=== PATIENT | female | born 1955 | race Caucasian/White ===

== ENCOUNTER 2016-09-14 14:51 | Observation (INO) ==
[2016-09-14] MEDS ORDERED: NS 1,000 ML ONE (15:09)
[2016-09-14 15:27] LABS: MANUAL DIFF NEEDED? NO
[2016-09-14 15:34] LABS: BASO% 0.4 % (0.0-0.8); EOS# 0.11 X1000 (0.0-0.7); EOS% 1.4 % (0.0-10.0); HEMATOCRIT 43.6 % (37.0-47.0); HEMOGLOBIN 13.9 g/dL (12.0-16.0); IMM GRAN# 0.03 X1000 (0.0-0.04); IMM GRAN% 0.4 % (0.0-0.5); LYMPH# 2.56 X1000 (1.2-3.4); LYMPH% 32.5 % (20.5-51.1); MCH 28.5 PG (27-31); MCHC 31.9 g/dL (33-37); MCV 89.5 FL (81-99); MONO% 6.3 % (1.7-9.3); MPV 10.2 FL (7.4-10.4); PLT 281 X1000 (130-400); RBC 4.87 XMIL (4.2-5.4)
[2016-09-14 15:44] LABS: INR 1.01 (0.86-1.15); PROTIME 13.6 Seconds (12.1-15.5)
[2016-09-14 15:45] LABS: PTT PL 20.7 Seconds (22.6-43.9)
--- NOTE | 2016-09-14 15:49 | EKG Report ---
Test Performed on : 09/14/2016 3:19:15 PM Test Reason : near syncope Blood Pressure : / mmHG Vent. Rate : 052 BPM Atrial Rate : 052 BPM P-R Int : 176 ms QRS Dur : 092 ms QT Int : 466 ms P-R-T Axes : 076 036 050 degrees QTc Int : 433 ms Sinus bradycardia. Otherwise normal ECG No previous ECGs available Unconfirmed Result
[2016-09-14 15:54] LABS: AGAP 15; ALBUMIN 4.3 g/dL (3.5-5.0); ALKALINE PHOSPHATASE 90 U/L (32-104); BUN 15 mg/dL (8-22); CHLORIDE 102 mmol/L (98-107); CK PROFILE 163 U/L (24-173); COSMO 281; GOT 21 U/L (10-30); GPT 29 U/L (10-36); MAGNESIUM 2.1 mg/dL (1.5-2.7); POTASSIUM 3.7 mmol/L (3.5-5.1); SODIUM 139 mmol/L (136-145); TCO2 23 mmol/L (25-35); TOTAL PROTEIN 6.9 g/dL (6.3-8.3)
--- NOTE | 2016-09-14 15:56 | Diag Imaging Result Doc PS360 ---
EXAM: CHEST-2 VIEWS HISTORY: CP TECHNIQUE: PA and Lateral chest x-ray COMPARISON: None. FINDINGS: There is cardiomegaly. There is mild pulmonary vascular congestion versus mild interstitial prominence. No effusion or pneumothorax. There are bilateral breast implants. IMPRESSION: Cardiomegaly with vascular congestion versus interstitial fibrosis. Electronically signed by Joanne Summers 09/14/2016 3:54 PM
--- NOTE | 2016-09-14 16:43 | PROVIDER DOCUMENTATION ---
This chart was entered by Emma Ryees Scribe, acting as scribe for Brian Perry MD. HPI-Rash/Wound/ReCheck - General Chief Complaint: Allergic Reaction Stated Complaint: ALLERGIC REACTION Time Seen by Provider: 09/14/16 15:25 Source: patient Allergies/Adverse Reactions: Allergies Allergy/AdvReac Type Severity Reaction Status Date / Time codeine AdvReac ITCHING Verified 09/14/16 15:06 Home Medications: Home Medication List Medication Instructions Recorded Confirmed Last Taken Type Amoxicillin/Potassium Clav 875 mg PO 09/14/16 Unknown History [Amox-Clav 875-125 mg Tablet] Oxycodone HCl/Acetaminophen 7.5 mg PO 09/14/16 Unknown History [Percocet 7.5-325 mg Tablet] - History of Present Illness-Dermatology Nature of Presenting Problem: Pt is 61 y/o F presents to the ED with allergic reaction. Pt states she has a dental extraction this am. Pt states felt fine after procedure. Pt states took 1 7.5 mg percocet and 15 mins after started itching then developed red rash. Pt states N and V Location: reports: generalized Quality: reports: itchy Severity: reports: moderate Onset/Duration: reports: just prior to arrival Timing: reports: still present Context/Associated Symptoms: reports: rash Locality of Occurance: Home Similar Symptoms Previously?: No Recently seen or treated by another doctor?: No Review of Systems - Adult - REVIEW OF SYSTEMS - ADULT Constitutional: reports: no symptoms reported Eyes: reports: no symptoms reported Ears, Nose, Mouth & Throat: reports: no symptoms reported Cardiovascular: reports: no symptoms reported Respiratory: reports: no symptoms reported Gastrointestinal: reports: nausea, vomiting. denies: abdominal pain, diarrhea Genitourinary: reports: no symptoms reported Musculoskeletal: reports: no symptoms reported Integumentary: reports: rash. denies: hives, itching Neurological: reports: no symptoms reported Psychiatric: reports: no symptoms reported Endocrine: reports: no symptoms reported Hematologic/Lymphatic: reports: no symptoms reported Allergic/Immunologic: reports: no symptoms reported All Other Systems: Reviewed and Negative Past History - Adult - PAST MEDICAL HISTORY-ADULT Review of Records: reports: Nursing Assessment Review, Medications Reviewed, Social history reviewed & non-contributory. Major Childhood Illnesses: reports: denies history Cardiovascular: reports: denies history Respiratory: reports: denies history Gastrointestinal: reports: denies history Obstetrical/Gynecological: reports: denies history Genitourinary: reports: denies history Musculoskeletal: reports: denies history Neurological: reports: denies history Endocrine/Immune: reports: denies history Other Conditions: reports: denies history - PRIOR SURGERIES/PROCEDURES Surgical/Procedure History: reports: hysterectomy - IMMUNIZATION STATUS Childhood Immunizations: See Nurse Assessment Flu Vaccine: See Nurse Assessment - FAMILY HISTORY Family History: reviewed, not pertinent - SOCIAL HISTORY Smoking: quit greater than 1 year, cigarettes Substance Use: denies Living Situation: family Physical Exam-General - PHYSICAL EXAM-ADULT Initial Vital Signs Reviewed: Yes - CONSTITUTIONAL General Appearance: appears well, alert, no apparent distress - EYES Eyes: PERRL/EOMI, pink conjunctivae - HEAD, EARS, NOSE, MOUTH & THROAT HENMT: normocephalic/atraumatic, moist mucous membranes, normal ENT inspection - NECK Neck: non-tender, full range of motion, supple, normal inspection - RESPIRATORY Respiratory: chest non-tender, lungs clear, normal breath sounds - CARDIOVASCULAR Cardiovascular: normal peripheral pulses, bradycardia - GASTROINTESTINAL (ABDOMEN) Abdominal Exam: normal bowel sounds, non tender, soft - LYMPHATIC Lymphatic: no adenopathy - MUSCULOSKELETAL Back Exam: normal inspection, no CVA tenderness, no vertebral tenderness Extremity: normal range of motion, non-tender, normal gait, normal inspection - SKIN Integumentary: normal turgor, warm/dry, erythema (generalized) - NEUROLOGIC Neurologic: grossly normal - PSYCHIATRIC Psych/Mental Status: normal mood/affect, oriented x 3 Progress - PLAN OF CARE/RESULTS Progress/Plan/Lab Results: Vital Signs - 8 hr 09/14/16 15:09 09/14/16 15:12 09/14/16 15:17 Temperature 98 F Pulse Rate 48 L 51 L Respiratory Rate 20 18 Blood Pressure 78/40 114/058 O2 Sat by Pulse Oximetry 97 98 09/14/16 15:58 Temperature Pulse Rate 88 Respiratory Rate 18 Blood Pressure 121/059 O2 Sat by Pulse Oximetry 99 Laboratory Results - last 24 hr 09/14/16 09/14/16 09/14/16 15:22 15:22 15:22 WBC RBC Hgb Hct MCV MCH MCHC RDW Std Deviation Plt Count MPV Immature Gran % (Auto) Neut % (Auto) Lymph % (Auto) Traverse % (Auto) Eos % (Auto) Baso % (Auto) Immature Gran # (Auto) Neut # (Auto) Lymph # (Auto) Traverse # (Auto) Eos # (Auto) Baso # (Auto) PT INR APTT (Factor Assay) D-Dimer Sodium 139 Potassium 3.7 Chloride 102 Carbon Dioxide 23 L Anion Gap 15 BUN 15 Creatinine 0.7 Estimated GFR/1.73 m2 > 60 BUN/Creatinine Ratio 21 Glucose 140 H Calculated Osmolality 281 Calcium 9.0 Magnesium 2.1 Total Bilirubin 0.40 AST 21 ALT 29 Alkaline Phosphatase 90 Creatine Kinase 163 Troponin T < 0.010 [id number] Pept 77 Total Protein 6.9 Albumin 4.3 Globulin 3.0 Albumin/Globulin Ratio 2.0 09/14/16 09/14/16 15:22 15:22 WBC 7.88 RBC 4.87 Hgb 13.9 Hct 43.6 MCV 89.5 MCH 28.5 MCHC 31.9 L RDW Std Deviation 14.4 Plt Count 281 MPV 10.2 Immature Gran % (Auto) 0.4 Neut % (Auto) 59.0 Lymph % (Auto) 32.5 Traverse % (Auto) 6.3 Eos % (Auto) 1.4 Baso % (Auto) 0.4 Immature Gran # (Auto) 0.03 Neut # (Auto) 4.65 Lymph # (Auto) 2.56 Traverse # (Auto) 0.50 Eos # (Auto) 0.11 Baso # (Auto) 0.03 PT 13.6 INR 1.01 APTT (Factor Assay) 20.7 L D-Dimer 1.35 H Sodium Potassium Chloride Carbon Dioxide Anion Gap BUN Creatinine Estimated GFR/1.73 m2 BUN/Creatinine Ratio Glucose Calculated Osmolality Calcium Magnesium Total Bilirubin AST ALT Alkaline Phosphatase Creatine Kinase Troponin T Ixh-M-[id number] Pept Total Protein Albumin Globulin Albumin/Globulin Ratio Orders Category Date Time Status Cardiac Monitoring DIRECTED Care 09/14/16 15:11 Active Cardiac Monitoring DIRECTED Care 09/14/16 15:11 Active Oxygen Therapy- ED Nursing DIRECTED Care 09/14/16 15:11 Active Saline Loc NOW Care 09/14/16 15:11 Active Saline Loc NOW Care 09/14/16 15:11 Active CHEST-2 VIEWS [RAD] Stat Exams 09/14/16 15:11 Completed CBC WITH ELECTRONIC DIFF [HEME] Stat Lab 09/14/16 15:22 Completed CK PROFILE [SP CHEM] Stat Lab 09/14/16 15:22 Completed COMPREHENSIVE METABOLIC PANEL [CHEM] Stat Lab 09/14/16 15:[address] D-D[address]ER [address] [COAG] Stat Lab 09/14/16 15:22 Completed MAGNESIUM [CHEM] Stat Lab 09/14/16 15:22 Completed PRO B-NATRIURETIC PEPTIDE Stat Lab 09/14/16 15:22 Completed [address]IME WITH INR PL [COAG] Stat Lab 09/14/16 15:[address] [COAG] Stat Lab 09/14/16 15:22 Completed TROPONIN T Stat Lab 09/14/16 15:22 Completed 0.9% Sodium Chloride Inj [Ns] 1,000 ml Med 09/14/16 15:09 Discontinued .ROUTE As Directed EKG [EKG] Stat Ther 09/14/16 15:11 Draft EKG [EKG] Stat Ther 09/14/16 15:11 Ordered Transfer/Admit Order [TRANSFER] Routine Transfer 09/14/16 16:35 Ordered Result Diagrams: 09/14/16 15:22 09/14/16 15:22 - EKG 1 Time of EKG reading by physician:: 15:19 EKG Read and Signed by:: Brian Perry EKG Interpretation (*Must complete 3 of following elements*): Abnormal Rate: 52 Rhythm: sinus bradycardia Comments: otherwise normal ECG - XRAY 1 XRAY Study: Chest Impression: Abnormal XRAY Interpretation: cardiomegaly with vascular congestion versus interstitial fibrosis - CONSULTS/PCP/HOSPITALIST Notification #1 *Consult/PCP/Hospitalist*: Dr. Echeverria Time Discussed: 16:05 Reason/Comments: Dr. Perry consults with Dr. Echeverria about Pt Consult Disposition: Admit Departure - Departure Time of Disposition Decision: 16:05 DIAGNOSIS: Allergic reaction, Hypotension Disposition: ADMITTED INPATIENT 09 Certified Medical Emergency: Emergent Condition: Stable Referrals and Follow-Ups: Kiki English MD [Primary Care Provider] - - Critical Care Note This patient required my direct & personal management of CC.: Yes Total Time (mins): 30 Critical Care Statement: This patient required my direct personal management to treat or rule out processes, the absence of which, could potentiallly result in sudden, clinically significant life or limb threatening deterioration. This chart was documented by the indicated scribe, (Emma Reyes, Christina) and accurately reflects the services I performed and decisions made by me, Brian Perry MD, as attested by the provider's signature.
[2016-09-14] MEDS ORDERED: NS 1,000 ML IV ONE ×2 (16:56→16:57)
[2016-09-14] MEDS ORDERED: ZOFRAN IV PRN (16:57)
[2016-09-14] MEDS: TYLENOL PO PRN (17:52)
[2016-09-14] MEDS ORDERED: AMBIEN PO PRN (17:56)
[2016-09-14] MEDS ORDERED: TORADOL IV PRN (17:56)
[2016-09-14] MEDS: CLARITIN PO SCH (20:14)
[2016-09-14] MEDS: BENADRYL IV PRN (20:15)
[2016-09-15] MEDS: BENADRYL IV PRN ×2 (00:38→04:41)
[2016-09-15] MEDS: TYLENOL PO PRN ×2 (03:32→09:35)
[2016-09-15] MEDS: CLARITIN PO SCH (09:33)
[2016-09-15 12:46] VITALS: BP 145/73
--- NOTE | 2016-09-15 16:37 | DISCHARGE SUMMARY ---
ADMISSION DATE: 09/14/2016 DISCHARGE DATE: 09/15/2016 DISCHARGE DIAGNOSES: 1. Anaphylactic response to presumably oxycodone versus possibly amoxicillin. 2. Hypotensive response associated with anaphylaxis. 3. Periodontal infection. HOSPITAL COURSE: Briefly, 61-year-old female who underwent a tooth extraction, bone graft yesterday. She did well postop but then she took 1 dose of Percocet and about 15 minutes later developed itching, rash, syncope or presyncope. Blood pressure initially when she came to ER reportedly 50 systolic and she was placed in observation. Blood pressure improved with hydration. Initial heart rate also in the 40s, that also improved. Overall patient was observed overnight and had no further issues. Blood pressure stabilized and she was discharged home in stable condition. She was concerned about starting the Augmentin she had been on previously because of possible reaction. She does have a known drug allergy to codeine and she was given Percocet which is most likely offender I think in this situation but we will give her prescription of clindamycin to complete her antibiotic course. She will take Tylenol for pain control and follow up clinically. cc: Chon English MD
--- NOTE | 2016-09-18 15:15 | HISTORY AND PHYSICAL ---
CHIEF COMPLAINT: Flushing, itching. Briefly this is a 61-year-old female with no significant medical problems, who underwent a tooth extraction and bone graft today on her left lower mandible per Dr. Hernandez, I believe. She did okay. She got not general anesthesia but I think she got conscious sedation including reportedly fentanyl. She took 1 dose of Percocet and then about 15 minutes later started getting itching and she developed a rash. She does have a known allergy to codeine which causes similar issues, rash and itching. She developed nausea, vomiting, she felt like she was going to pass out. When she 1st came to the ER her initial systolic blood pressure was reportedly in the 50s systolic. One blood pressure here recorded 78/40 but I do not see a triage blood pressure, was not listed. Pulse rate was 48. BP we could not get but looked like again reportedly 50s. She improved with hydration and she has since resolved though she still has itching and she is still very flushed. Patient placed in observation for presumed anaphylactic response to Percocet. PAST MEDICAL HISTORY: Denies. PAST SURGICAL HISTORY: She has had a hysterectomy and she has had a rotator cuff repair. FAMILY HISTORY: Father of Hodgkin's lymphoma. Mother had ovarian cancer and . ALLERGIES: Codeine. MEDICATIONS: None regular. She is on Augmentin, Peridex and Percocet which she is still taking. REVIEW OF SYSTEMS: Otherwise negative. PHYSICAL EXAMINATION: VITAL SIGNS: Blood pressure 123/54, heart rate is 70, respiratory rate 25, temperature 98.2 degrees, 99% saturation on 2 L. CARDIOVASCULAR: Regular rate and rhythm. PULMONARY: Bilateral breath sounds. Clear to auscultation. GENERALLY: Flushed female, plethoric in no acute distress. HEENT: Pupils were conjunctivae were injected. NECK: Supple. CARDIOVASCULAR: Regular rate and rhythm. PULMONARY: Bilateral breath sounds. Clear to auscultation. GI: Soft, nontender, nondistended. Bowel sounds are positive. EXTREMITIES: No clubbing or cyanosis. LYMPHATICS: No peripheral edema. NEUROLOGIC: Nonfocal. LABORATORY DATA: Was unremarkable. O and P she had no evidence of laryngeal edema. ASSESSMENT: A 61-year-old female, who presents with an anaphylactic shock episode associated with Percocet most likely. Could be a reaction or delayed reaction to the anesthetic or fentanyl or possibly Augmentin however she has tolerated penicillin type antibiotics in the past and she has had an unknown reaction with rash and itching to codeine previously. Problem #1 anaphylactic shock. She has resolved with fluids. We will observe for 24 hours and monitor p.r.n. Itching, medications and we will follow closely. Anticipate discharge in the morning if stable. cc: Jair Echeverria MD
== END 2016-09-15 13:00 | disposition home or self-care (01) ==
LOC: P.ED 14:51 → P.ICU 14:51
PROVIDERS: ATTEND Internal Medicine